=== PATIENT | female | born 1985 | race American Indian/Alaskan Native ===

== ENCOUNTER 2017-06-06 22:43 | Emergency (ER) | payer SELFPAY ==
[2017-06-06] MEDS ORDERED: TYLENOL PO ONE (22:54)
[2017-06-06] MEDS ORDERED: TYLENOL ONE (22:57)
[2017-06-07 00:31] VITALS: BP 137/97
[2017-06-07] MEDS ORDERED: TYLENOL #3 ONE (02:01)
[2017-06-07] MEDS ORDERED: TRIMOX ONE (02:01)
[2017-06-07] MEDS ORDERED: TRIMOX PO ONE (02:03)
[2017-06-07] MEDS ORDERED: TYLENOL #3 PO ONE (02:03)
--- NOTE | 2017-06-07 03:01 | Emergency Department Report ---
HPI - General Chief Complaint: Dental/Oral Time Seen by Provider: 06/07/17 02:21 - HPI HPI: The patient is a 32-year-old male who presents to ED complaining of 8/10 pain in the left side of his mouth x 2 days . Patient states that the pain started 2 days ago and has increased in severity today. The pain is exacerbated by eating and opening of the mouth and eating Patient states the pain is alleviated initially with pain medication but comes back. Patient states that it radiates towards ear. Patient describes a as a throbbing, pressure-like sensation. Patient states otherwise well and has no other complaints. Patient has had no fevers and no chills. No chest pain, no shortness of breath. No abdominal pain. No shortness of breath or recent trauma to the face. ED Past Medical Hx - Past Medical History Previous Medical History?: No - Surgical History Past Surgical History?: Yes Additional Surgical History: fibroid removal 2014 - Social History Smoking Status: Never Smoker Substance Use Type: None - Medications Home Medications: Home Medications Medication Instructions Recorded Confirmed Last Taken Type Acetaminophen/Codeine [Tylenol 1 tab PO Q6H PRN #12 tab 06/07/17 Unknown Rx /Codeine # 3 tab] Amoxicillin [Amoxicillin TAB] 875 mg PO TID #21 tablet 06/07/17 Unknown Rx Ibuprofen [Motrin] 800 mg PO Q8HR PRN #30 tablet 06/07/17 Unknown Rx ED Review of Systems ROS: Stated complaint: COLD SX Other details as noted in HPI Constitutional: denies: chills, fever Eyes: denies: eye pain, eye discharge, vision change ENT: denies: ear pain, throat pain Respiratory: denies: cough, shortness of breath, wheezing Cardiovascular: denies: chest pain, palpitations Endocrine: no symptoms reported Gastrointestinal: denies: abdominal pain, nausea, diarrhea Genitourinary: denies: urgency, dysuria, discharge Musculoskeletal: denies: back pain, joint swelling, arthralgia Skin: denies: rash, lesions Neurological: denies: headache, weakness, paresthesias Psychiatric: denies: anxiety, depression Hematological/Lymphatic: denies: easy bleeding, easy bruising Physical Exam - Physical Exam Vital Signs: Vital Signs 06/06/17 06/06/17 06/07/17 22:49 22:55 00:30 Temperature 99.2 F 98.7 F Pulse Rate 79 76 Respiratory 18 18 18 Rate Blood Pressure 142/100 Blood Pressure 137/97 [Right] O2 Sat by Pulse 100 99 Oximetry 06/07/17 02:08 Temperature Pulse Rate Respiratory 18 Rate Blood Pressure Blood Pressure [Right] O2 Sat by Pulse Oximetry Physical Exam: GENERAL: Alert and oriented x3, no apparent distress, Normal Gait, atraumatic. HEAD: Head is normocephalic and a-traumatic. EYES: Extra ocular muscles are intact. Pupils are equal, round, and reactive to light and accommodation. EARS: symetrical, atraumatic, non tender, ear canal clear and moderate cerumen, tympanic membrance non inflamed. gross auditory nml bilaterally. . MOUTH:Mouth is well hydrated and without lesions. Tonsils nonerythematous or swollen, Uvula midline, Tongue not elevated. Mucous membranes are moist. Posterior pharynx clear, no exudate or lesions. Patent airways. Tenderness to palpation of tooth #20, no bleeding, no gingival enlargement #20 partially missing. NECK: Supple. Non edematous No lymphadenopathy or thyromegaly. LUNGS: Symetrical with respiration, No wheezing, no rales or crackles, CTAB. HEART: S1, S2 present, regular rate and rhythm without murmur, no rubs, no gallops. Non tender to palpation BACK: Full range of motion, no spinal tenderness, nontender to palpation. SKIN: Warm and dry, No lesions, No ulceration or induration present. ED Course Vital Signs 06/06/17 06/06/17 06/07/17 22:49 22:55 00:30 Temperature 99.2 F 98.7 F Pulse Rate 79 76 Respiratory 18 18 18 Rate Blood Pressure 142/100 Blood Pressure 137/97 [Right] O2 Sat by Pulse 100 99 Oximetry 06/07/17 02:08 Temperature Pulse Rate Respiratory 18 Rate Blood Pressure Blood Pressure [Right] O2 Sat by Pulse Oximetry ED Medical Decision Making - Medical Decision Making 32-year-old female who presents with left-sided Facial pain secondary to odontogenic caries ED course: Patient received 1000 mg of amoxicillin, 1 tablet of Tylenol No. 3. Odontogenic infection versus ear infection. Based upon history and physical examination, pain is a result of an infection of tooth number 20 and that the pain Pt feels on the right side of his face and towards the ear is referred pain from this infectious process. Pt has no evidence of acute impending airway compromise. At this point, patient will be discharged home on some antibiotics and pain trial, she will do well with an outpatient course of antibiotics. Follow up with the Dental Clinic as referred Vital signs are normal patient is in no acute distress. Pt had an effect uneventful ED stay Critical care attestation.: If time is entered above; I have spent that time in minutes in the direct care of this critically ill patient, excluding procedure time. ED Disposition Clinical Impression: Dental caries, Pain, dental, Tooth infection Disposition: TO HOME OR SELFCARE Is pt being admited?: No Does the pt Need Aspirin: No Condition: Stable Instructions: Toothache (ED), Dental Caries (ED) Additional Instructions: Follow-up with dentist in 3-5 days If symptoms worsen or new symptoms arise return to ED immediately Prescriptions: Acetaminophen/Codeine [Tylenol /Codeine # 3 tab] 1 tab PO Q6H PRN #12 tab PRN Reason: Pain Amoxicillin [Amoxicillin TAB] 875 mg PO TID #21 tablet Ibuprofen [Motrin] 800 mg PO Q8HR PRN #30 tablet PRN Reason: Pain Referrals: PRIMARY CARE,MD [Primary Care Provider] - 3-[address] [facility] [Outside] - 3-5 Days [facility] [Outside] - 3-[address] [facility] [Outside] - 3-5 Days [facility] [Outside] - 3-5 Days Forms: Accompanied Note, Work/School Release Form(ED) Time of Disposition: 03:04
== END 2017-06-07 03:13 | disposition home or self-care (01) ==
LOC: ED 22:43
DX: K04.7 Periapical abscess without sinus (principal)
CPT/HCPCS: 99282

== ENCOUNTER 2019-06-15 08:36 | Emergency (ER) | payer SELFPAY ==
[2019-06-15 09:01] LABS: Hematocrit 42.8 % (30.3-42.9); Hemoglobin 14.2 gm/dl (10.1-14.3); Mean Corpuscular HGB Conc 33 % (30-34); Mean Corpuscular Volume 84 fl (79-97); Platelet Count 242 K/mm3 (140-440); Red Blood Count 5.09 M/mm3 (3.65-5.03); Red Cell Distribution Width 13.5 % (13.2-15.2)
[2019-06-15 09:24] LABS: Alanine Aminotransferase 10 units/L (7-56); Albumin 4.5 g/dL (3.9-5); BUN/Creatinine Ratio 10; Blood Urea Nitrogen 10 mg/dL (7-17); Calcium 9.8 mg/dL (8.4-10.2); Hemolysis Index 1
[2019-06-15] MEDS ORDERED: KETOROLAC 30 MG/1 ML INJ IV ONE (09:55)
[2019-06-15] MEDS ORDERED: SODIUM CHLORIDE 0.9% 1000 ML 1,000 ML IV ONE ×2 (09:55→11:54)
[2019-06-15] MEDS ORDERED: ONDANSETRON 4 MG/2 ML INJ IV ONE (09:55)
[2019-06-15] MEDS ORDERED: FAMOTIDINE 20 MG/2 ML INJ IV ONE (09:55)
[2019-06-15 10:29] LABS: Bilirubin,Urine Negative (Negative); Blood,Urine Trace (Negative); Color,Urine Yellow (Yellow)
[2019-06-15 10:30] LABS: Urobilinogen,Urine 0.2 mg/dL (<2.0)
[2019-06-15 10:40] LABS: Anisocytosis 1+; Band Neutrophils # (Manual) 1.6 K/mm3; Basophils % (Manual) 0 % (0.0-1.8); Eosinophils % (Manual) 0 % (0.0-4.3); Platelet Estimate Consistent w Auto; Total Cells Counted 100
--- NOTE | 2019-06-15 11:06 | Emergency Department Report ---
ED N/V/D HPI - General Chief complaint: Abdominal Pain Stated complaint: ABD PAIN Time Seen by Provider: 06/15/19 09:37 Source: patient Mode of arrival: Ambulatory Limitations: No Limitations - History of Present Illness Initial comments: This is a 34-year-old female who presents to the ED complaining of nausea vomiting diarrhea that began 2 days ago. She states she is back to wrap her wrist 2 days ago shortly after the symptoms started. His patient denies any injuries trauma to the abdomen. She says last menstrual period as 06/13/2019 and currently on her cycle. MD complaint: nausea, vomiting, diarrhea, abdominal pain Description of Vomiting: food contents Description of Diarrhea: water Associated Abdominal Pain: Yes (generalized) Location: diffuse Radiation: none Severity: moderate Pain Scale: 4 Quality: cramping, aching Consistency: intermittent Improves with: none Context: possible food poisoning Associated Symptoms: denies other symptoms. denies: chest pain, cough, malaise - Related Data Previous Rx's Medication Instructions Recorded Last Taken Type Acetaminophen/Codeine [Tylenol 1 tab PO Q6H PRN #12 tab 06/07/17 Unknown Rx /Codeine # 3 tab] Amoxicillin [Amoxicillin TAB] 875 mg PO TID #21 tablet 06/07/17 Unknown Rx Ibuprofen [Motrin] 800 mg PO Q8HR PRN #30 tablet 06/07/17 Unknown Rx Dicyclomine [Bentyl] 20 mg PO BID #20 tablet 06/15/19 Unknown Rx Famotidine [Pepcid] 20 mg PO BID #20 tablet 06/15/19 Unknown Rx Ondansetron [Zofran ODT TAB] 8 mg PO Q12HR #20 tab.rapdis 06/15/19 Unknown Rx Allergies Allergy/AdvReac Type Severity Reaction Status Date / Time No Known Allergies Allergy Verified 06/06/17 23:47 ED Review of Systems ROS: Stated complaint: ABD PAIN Other details as noted in HPI Comment: All other systems reviewed and negative ED Past Medical Hx - Past Medical History Previous Medical History?: No - Surgical History Past Surgical History?: Yes Additional Surgical History: fibroid removal 2014 - Social History Smoking Status: Never Smoker Substance Use Type: None - Medications Home Medications: Home Medications Medication Instructions Recorded Confirmed Last Taken Type Acetaminophen/Codeine [Tylenol 1 tab PO Q6H PRN #12 tab 06/07/17 Unknown Rx /Codeine # 3 tab] Amoxicillin [Amoxicillin TAB] 875 mg PO TID #21 tablet 06/07/17 Unknown Rx Ibuprofen [Motrin] 800 mg PO Q8HR PRN #30 tablet 06/07/17 Unknown Rx Dicyclomine [Bentyl] 20 mg PO BID #20 tablet 06/15/19 Unknown Rx Famotidine [Pepcid] 20 mg PO BID #20 tablet 06/15/19 Unknown Rx Ondansetron [Zofran ODT TAB] 8 mg PO Q12HR #20 tab.rapdis 06/15/19 Unknown Rx ED Physical Exam - General Limitations: No Limitations General appearance: alert, in no apparent distress - Head Head exam: Present: atraumatic, normocephalic - Eye Eye exam: Present: normal appearance - ENT ENT exam: Present: mucous membranes moist - Neck Neck exam: Present: normal inspection - Respiratory Respiratory exam: Present: normal lung sounds bilaterally. Absent: respiratory distress - Cardiovascular Cardiovascular Exam: Present: regular rate, normal rhythm. Absent: systolic murmur, diastolic murmur, rubs, gallop - GI/Abdominal GI/Abdominal exam: Present: soft, normal bowel sounds. Absent: distended, tenderness, guarding, mass - Extremities Exam Extremities exam: Present: normal inspection - Back Exam Back exam: Present: normal inspection - Neurological Exam Neurological exam: Present: alert, oriented X3 - Psychiatric Psychiatric exam: Present: normal affect, normal mood - Skin Skin exam: Present: warm, dry, intact, normal color. Absent: rash ED Course Vital Signs 06/15/19 06/15/19 06/15/19 08:43 11:44 12:04 Temperature 98.1 F Pulse Rate 105 H 89 Respiratory 18 18 17 Rate Blood Pressure 127/81 108/64 [Right] O2 Sat by Pulse 99 100 Oximetry ED Medical Decision Making - Lab Data Result diagrams: 06/15/19 08:46 06/15/19 08:47 Laboratory Last Values WBC 16.0 K/mm3 (4.5-11.0) H 06/15/19 08:46 RBC 5.09 M/mm3 (3.65-5.03) H 06/15/19 08:46 Hgb 14.2 gm/dl (10.1-14.3) 06/15/19 08:46 Hct 42.8 % (30.3-42.9) 06/15/19 08:46 MCV 84 fl (79-97) 06/15/19 08:46 MCH 28 pg (28-32) 06/15/19 08:46 MCHC 33 % (30-34) 06/15/19 08:46 RDW 13.5 % (13.2-15.2) 06/15/19 08:46 Plt Count 242 K/mm3 (140-440) 06/15/19 08:46 Add Manual Diff Complete 06/15/19 08:46 Total Counted 100 06/15/19 08:46 Seg Neutrophils % Home Health Clinical Supervisor 06/15/19 08:46 Seg Neuts % (Manual) 81.0 % (40.0-70.0) H 06/15/19 08:46 Band Neutrophils % 10.0 % 06/15/19 08:46 Lymphocytes % (Manual) 5.0 % (13.4-35.0) L 06/15/19 08:46 Reactive Lymphs % (Man) 0 % 06/15/19 08:46 Monocytes % (Manual) 1.0 % (0.0-7.3) 06/15/19 08:46 Eosinophils % (Manual) 0 % (0.0-4.3) 06/15/19 08:46 Basophils % (Manual) 0 % (0.0-1.8) 06/15/19 08:46 Metamyelocytes % 3.0 % 06/15/19 08:46 Myelocytes % 0 % 06/15/19 08:46 Promyelocytes % 0 % 06/15/19 08:46 Blast Cells % 0 % 06/15/19 08:46 Nucleated RBC % Not Reportable 06/15/19 08:46 Seg Neutrophils # Man 13.0 K/mm3 (1.8-7.7) H 06/15/19 08:46 Band Neutrophils # 1.6 K/mm3 06/15/19 08:46 Lymphocytes # (Manual) 0.8 K/mm3 (1.2-5.4) L 06/15/19 08:46 Abs React Lymphs (Man) 0.0 K/mm3 06/15/19 08:46 Monocytes # (Manual) 0.2 K/mm3 (0.0-0.8) 06/15/19 08:46 Eosinophils # (Manual) 0.0 K/mm3 (0.0-0.4) 06/15/19 08:46 Basophils # (Manual) 0.0 K/mm3 (0.0-0.1) 06/15/19 08:46 Metamyelocytes # 0.5 K/mm3 06/15/19 08:46 Myelocytes # 0.0 K/mm3 06/15/19 08:46 Promyelocytes # 0.0 K/mm3 06/15/19 08:46 Blast Cells # 0.0 K/mm3 06/15/19 08:46 WBC Morphology Not Reportable 06/15/19 08:46 Hypersegmented Neuts Not Reportable 06/15/19 08:46 Hyposegmented Neuts Not Reportable 06/15/19 08:46 Hypogranular Neuts Not Reportable 06/15/19 08:46 Smudge Cells Not Reportable 06/15/19 08:46 Toxic Granulation Not Reportable 06/15/19 08:46 Toxic Vacuolation Not Reportable 06/15/19 08:46 Dohle Bodies Not Reportable 06/15/19 08:46 Pelger-Huet Anomaly Not Reportable 06/15/19 08:46 Nkechi Rods Not Reportable 06/15/19 08:46 Platelet Estimate Consistent w auto 06/15/19 08:46 Clumped Platelets Not Reportable 06/15/19 08:46 Plt Clumps, EDTA Not Reportable 06/15/19 08:46 Large Platelets Not Reportable 06/15/19 08:46 Giant Platelets Not Reportable 06/15/19 08:46 Platelet Satelliting Not Reportable 06/15/19 08:46 Plt Morphology Comment Not Reportable 06/15/19 08:46 RBC Morphology Not Reportable 06/15/19 08:46 Dimorphic RBCs Not Reportable 06/15/19 08:46 Polychromasia Not Reportable 06/15/19 08:46 Hypochromasia Not Reportable 06/15/19 08:46 Poikilocytosis Not Reportable 06/15/19 08:46 Anisocytosis 1+ 06/15/19 08:46 Microcytosis Not Reportable 06/15/19 08:46 Macrocytosis Not Reportable 06/15/19 08:46 Spherocytes Not Reportable 06/15/19 08:46 Pappenheimer Bodies Not Reportable 06/15/19 08:46 Sickle Cells Not Reportable 06/15/19 08:46 Target Cells Not Reportable 06/15/19 08:46 Tear Drop Cells Not Reportable 06/15/19 08:46 Ovalocytes Not Reportable 06/15/19 08:46 Helmet Cells Not Reportable 06/15/19 08:46 [place]-Sunflower Bodies Not Reportable 06/15/19 08:46 [place] Rings Not Reportable 06/15/19 08:46 Paco Cells Not Reportable 06/15/19 08:46 Bite Cells Not Reportable 06/15/19 08:46 Crenated Cell Not Reportable 06/15/19 08:46 Elliptocytes Not Reportable 06/15/19 08:46 Acanthocytes (Spur) Not Reportable 06/15/19 08:46 Rouleaux Not Reportable 06/15/19 08:46 Hemoglobin C Crystals Not Reportable 06/15/19 08:46 Schistocytes Not Reportable 06/15/19 08:46 Malaria parasites Not Reportable 06/15/19 08:46 Kane Bodies Not Reportable 06/15/19 08:46 Hem Pathologist Commnt No 06/15/19 08:46 Sodium 136 mmol/L (137-145) L 06/15/19 08:47 Potassium 3.5 mmol/L (3.6-5.0) L 06/15/19 08:47 Chloride 96.6 mmol/L (98-107) L 06/15/19 08:47 Carbon Dioxide 21 mmol/L (22-30) L 06/15/19 08:47 Anion Gap 22 mmol/L 06/15/19 08:47 BUN 10 mg/dL (7-17) 06/15/19 08:47 Creatinine 1.0 mg/dL (0.7-1.2) 06/15/19 08:47 Estimated GFR > 60 ml/min 06/15/19 08:47 BUN/Creatinine Ratio 10 % 06/15/19 08:47 Glucose 125 mg/dL (65-100) H 06/15/19 08:47 Calcium 9.8 mg/dL (8.4-10.2) 06/15/19 08:47 Total Bilirubin 0.80 mg/dL (0.1-1.2) 06/15/19 08:47 AST 19 units/L (5-40) 06/15/19 08:47 ALT 10 units/L (7-56) 06/15/19 08:47 Alkaline Phosphatase 72 units/L (35-129) 06/15/19 08:47 Total Protein 8.6 g/dL (6.3-8.2) H 06/15/19 08:47 Albumin 4.5 g/dL (3.9-5) 06/15/19 08:47 Albumin/Globulin Ratio 1.1 % 06/15/19 08:47 HCG, Qual Negative (Negative) 06/15/19 09:07 Urine Color Yellow (Yellow) 06/15/19 10:09 Urine Turbidity Hazy (Clear) 06/15/19 10:09 Urine pH 6.0 (5.0-7.0) 06/15/19 10:09 Ur Specific [place] 1.030 (1.003-1.030) 06/15/19 10:09 Urine Protein 30 mg/dl mg/dL (Negative) 06/15/19 10:09 Urine Glucose (UA) Negative mg/dL (Negative) 06/15/19 10:09 Urine Ketones Negative mg/dL (Negative) 06/15/19 10:09 Urine Blood Trace (Negative) 06/15/19 10:09 Urine Nitrite Negative (Negative) 06/15/19 10:09 Urine Bilirubin Negative (Negative) 06/15/19 10:09 Urine Urobilinogen 0.2 mg/dL (<2.0) 06/15/19 10:09 Ur Leukocyte Esterase Trace (Negative) 06/15/19 10:09 Urine WBC (Auto) 4.0 /HPF (0.0-6.0) 06/15/19 10:09 Urine RBC (Auto) 2.0 /HPF (0.0-6.0) 06/15/19 10:09 U Epithel Cells (Auto) 3.0 /HPF (0-13.0) 06/15/19 10:09 - Radiology Data Radiology results: report reviewed, image reviewed CT OF THE ABDOMEN AND PELVIS WITH INTRAVENOUS CONTRAST INDICATION / CLINICAL INFORMATION: Right-sided abdominal pain with nausea and vomiting for 48 hours.. TECHNIQUE: The patient received 100 cc Omnipaque [address] scans at this location are performed using CT dose reduction for ALARA by means of automated exposure control. COMPARISON: None available. FINDINGS: ABDOMEN: There is moderate increased fluid throughout the colon and in the distal small bowel without significant bowel wall thickening. I see no evidence of bowel obstruction or free air. There is mild generalized increased density of the peritoneal fat anteriorly which is a nonspecific finding and is likely reactive. There is a small hiatal hernia. The liver, spleen, gallbladder, bile ducts, pancreas, adrenal glands and kidneys are normal. No adenopathy is seen. The lung bases are clear. PELVIS: The distal ureters and urinary bladder are normal. The uterus and adnexal regions are unremarkable. No abnormal mass or fluid collection is seen. A normal appendix is present and there is no evidence of diverticulitis. There is a small fat-containing periumbilical hernia without complication. No acute osseous abnormality is seen. IMPRESSION: Findings characteristic of a low-grade enterocolitis. No CT evidence of acute appendicitis. Signer Name: Marc Urbina MD Signed: 06/15/2019 12:35 PM Workstation Name: [id number] Transcribed By: RT Dictated By: Marc Urbina MD Electronically Authenticated By: Marc Urbina MD Signed Date/Time: 06/15/19 1235 - Medical Decision Making 34 year of presents with acute gastroenteritis. Patient got medication while in the ED. Labs within normal limits. There was leukocytosis. Most likely due to continued active vomiting and dehydration Patient reports feeling better prior to discharge. CT scan of the abdomen shows no acute disease. I explained all labs with the patient. She received fluids in the ED Vital signs are normal patient is in no acute distress. Also patient will follow-up with the primary care physician. Discussed the patient is symptoms worsen to return to ED. Critical care attestation.: If time is entered above; I have spent that time in minutes in the direct care of this critically ill patient, excluding procedure time. ED Disposition Clinical Impression: Acute gastroenteritis Disposition: DC-01 TO HOME OR SELFCARE Is pt being admited?: No Does the pt Need Aspirin: No Condition: Stable Instructions: Gastroenteritis (ED), Food Poisoning (ED), Abdominal Pain (ED) Additional Instructions: Make sure to follow up with the primary care physician as discussed. Take all your medications as you've been prescribed. If you have any worsening symptoms or develop new symptoms please return to ED immediately. Prescriptions: Dicyclomine [Bentyl] 20 mg PO BID #20 tablet Famotidine [Pepcid] 20 mg PO BID #20 tablet Ondansetron [Zofran ODT TAB] 8 mg PO Q12HR #20 tab.radha Referrals: PRIMARY CARE,MD [Primary Care Provider] - 3-5 Days [facility] [Provider Group] - 3-5 Days [facility] [Outside] - 3-5 Days [facility] [Outside] - 3-5 Days Forms: Accompanied Note, Work/School Release Form(ED) Time of Disposition: 13:18
[2019-06-15] MEDS ORDERED: MORPHINE 2 MG/1 ML INJ IV ONE (11:54)
[2019-06-15 12:04] VITALS: BP 108/64
--- NOTE | 2019-06-15 12:39 | Cat Scan Report ---
CT OF THE ABDOMEN AND PELVIS WITH INTRAVENOUS CONTRAST INDICATION / CLINICAL INFORMATION: Right-sided abdominal pain with nausea and vomiting for 48 hours.. TECHNIQUE: The patient received 100 cc Omnipaque [address] scans at this location are performed using CT dose reduction for ALARA by means of automated exposure control. COMPARISON: None available. FINDINGS: ABDOMEN: There is moderate increased fluid throughout the colon and in the distal small bowel without significant bowel wall thickening. I see no evidence of bowel obstruction or free air. There is mild generalized increased density of the peritoneal fat anteriorly which is a nonspecific finding and is likely reactive. There is a small hiatal hernia. The liver, spleen, gallbladder, bile ducts, pancreas, adrenal glands and kidneys are normal. No adeno ade is seen. The lung bases are clear. PELVIS: The distal ureters and urinary bladder are normal. The uterus and adnexal regions are unremar kable. No abnormal mass or fluid collection is seen. A normal appendix is present and there is no nathen dence of diverticulitis. There is a small fat-containing periumbilical hernia without complication. N o acute osseous abnormality is seen. IMPRESSION: Findings characteristic of a low-grade enterocolitis. No CT evidence of acute appendiciti s. Signer Name: Marc Urbina MD Signed: 06/15/2019 12:35 PM Workstation Name: [email or web address]
== END 2019-06-15 13:33 | disposition home or self-care (01) ==
LOC: ED 08:36
DX: K52.9 Noninfective gastroenteritis and colitis, unspecified (principal); Z98.890 Other specified postprocedural states; Z79.2 Long term (current) use of antibiotics; Z79.1 Long term (current) use of non-steroidal anti-inflammatories (NSAID); Z79.899 Other long term (current) drug therapy
CPT/HCPCS: 36415; 74177; 80053; 81001; 84703; 85007; 85025; 96361; 96374; 96375; 99284; J1885; J2270; J2405; J7030; Q9967

== ENCOUNTER 2020-05-23 01:42 | Emergency (ER) | payer OTHER ==
[2020-05-23 02:26] LABS: Basophils # (Auto) 0.1 K/mm3 (0.0-0.1); Basophils % (Auto) 1.1 % (0.0-1.8); Eosinophils % (Auto) 0.3 % (0.0-4.3); Hematocrit 42.2 % (30.3-42.9); Hemoglobin 14.3 gm/dl (10.1-14.3); Lymphocytes % (Auto) 29.3 % (13.4-35.0); Mean Corpuscular HGB Conc 34 % (30-34); Mean Corpuscular Volume 86 fl (79-97); Monocytes # (Auto) 0.6 K/mm3 (0.0-0.8); Monocytes % (Auto) 9.6 % (0.0-7.3); Platelet Count 259 K/mm3 (140-440); Red Blood Count 4.92 M/mm3 (3.65-5.03); Red Cell Distribution Width 13.3 % (13.2-15.2)
[2020-05-23 03:11] LABS: Bilirubin,Urine NEG (Negative); Blood,Urine LG (Negative); Color,Urine Yellow (Yellow); Mucus,Urine FEW /HPF; Urobilinogen,Urine < 2.0 mg/dL (<2.0)
--- NOTE | 2020-05-23 03:18 | Ultrasound Report ---
ULTRASOUND OBSTETRIC INDICATION / CLINICAL INFORMATION: Vaginal bleeding reports 6 weeks . Clinical Gestational Age (GA) in weeks, days: 6, 3 TECHNIQUE: Transabdominal and Transvaginal. COMPARISON: None available. FINDINGS: GESTATIONAL SAC: Well-defined oval shape and intrauterine in location. YOLK SAC: No significant abnormality. EMBRYO/FETUS: No significant abnormality. - [place]-Rump Length = 0.8 cm = 6, 6 weeks, days - Heart Rate, beats per minute (if present) = 131 ADNEXA: No significant abnormality. FREE FLUID: None. ADDITIONAL FINDINGS: Small uterine fibroids measuring up to 2.2 cm. IMPRESSION: 1. Single, living intrauterine with estimated sonographic age of 6, 6 weeks, days. Signer Name: Harmeet Gamboa MD Signed: 05/23/2020 3:14 AM Workstation Name: [id number]
--- NOTE | 2020-05-23 03:18 | Ultrasound Report ---
ULTRASOUND OBSTETRIC INDICATION / CLINICAL INFORMATION: Vaginal bleeding reports 6 weeks . Clinical Gestational Age (GA) in weeks, days: 6, 3 TECHNIQUE: Transabdominal and Transvaginal. COMPARISON: None available. FINDINGS: GESTATIONAL SAC: Well-defined oval shape and intrauterine in location. YOLK SAC: No significant abnormality. EMBRYO/FETUS: No significant abnormality. - [place]-Rump Length = 0.8 cm = 6, 6 weeks, days - Heart Rate, beats per minute (if present) = 131 ADNEXA: No significant abnormality. FREE FLUID: None. ADDITIONAL FINDINGS: Small uterine fibroids measuring up to 2.2 cm. IMPRESSION: 1. Single, living intrauterine with estimated sonographic age of 6, 6 weeks, days. Signer Name: Harmeet Gamboa MD Signed: 05/23/2020 3:14 AM Workstation Name: [id number]
--- NOTE | 2020-05-23 06:53 | Emergency Department Report ---
ED Female HPI - General Chief complaint: Vaginal Bleeding Stated complaint: VAGINAL BLEEDING Time Seen by Provider: 05/23/20 06:08 Source: patient, EMS ( EMS documentation not available at time of chart dictation ), RN notes reviewed Mode of arrival: Ambulatory Limitations: No Limitations - History of Present Illness Initial comments: The patient was evaluated in the emergency department for symptoms described in the history of present illness. He/she was evaluated in the context of the global COVID-19 pandemic, which necessitated consideration that the patient might be at risk for infection with the virus that causes COVID-19. Institutional protocols and algorithms that pertain to the evaluation of patients at risk for COVID-19 are in a state of rapid change based on information released by regulatory bodies including the CDC and federal and state organizations. These policies and algorithms were followed during the patient's care in the emergency department. Please note that these policies, procedures and recommendations changed on a rapid basis. Patient is a pleasant 35-year-old female who is not known to myself previously, 3, para 0, reports "2 miscarriages at 5 months, because my water broke both times." She is approximately 6-1/2 weeks , without chronic medical conditions, and reports no care, and reports that she does not have an [facility] doctor. She presents to the ER today with a complaint of painless vaginal bleeding, that started a few hours ago. She denies all additional complaints. She denies physical pain. She denies urinary symptoms. No recent trauma, heavy lifting, or vigorous sexual activity. Patient states "I think I am having a miscarriage." Complaint: vaginal bleeding -: Gradual, hour(s) Consistency: intermittent Improves with: none Worsens with: none Are you Now?: Yes Associated Symptoms: denies other symptoms, vaginal bleeding - Related Data Previous Rx's Medication Instructions Recorded Last Taken Type Famotidine [Pepcid] 20 mg PO BID #20 tablet 06/15/19 Unknown Rx Doxylamine Succinate/Vit B6 1 each PO QHS PRN #30 tablet. 05/23/20 Unknown Rx [Kacie Cannon 10-10 mg Tablet] Vit-Fe Fumar-FA [ 1 tab PO QDAY #30 tablet 05/23/20 Unknown Rx Vitamin] Allergies Allergy/AdvReac Type Severity Reaction Status Date / Time No Known Allergies Allergy Verified 06/06/17 23:47 ED Review of Systems ROS: Stated complaint: VAGINAL BLEEDING Other details as noted in HPI Comment: All other systems reviewed and negative Genitourinary: abnormal menses. denies: urgency, dysuria, frequency, hematuria, discharge ED Past Medical Hx - Past Medical History Previous Medical History?: No - Surgical History Past Surgical History?: Yes Additional Surgical History: fibroid removal 2014 - Social History Smoking Status: Never Smoker - Medications Home Medications: Home Medications Medication Instructions Recorded Confirmed Last Taken Type Famotidine [Pepcid] 20 mg PO BID #20 tablet 06/15/19 Unknown Rx Doxylamine Succinate/Vit B6 1 each PO QHS PRN #30 tablet. 05/23/20 Unknown Rx [Diclegis Dr 10-10 mg Tablet] Vit-Fe Fumar-FA [ 1 tab PO QDAY #30 tablet 05/23/20 Unknown Rx Vitamin] ED Physical Exam - General Limitations: No Limitations General appearance: alert, in no apparent distress - Head Head exam: Present: atraumatic, normocephalic - Eye Eye exam: Present: normal appearance, EOMI. Absent: nystagmus - ENT ENT exam: Present: normal exam, normal orophraynx, mucous membranes moist, normal external ear exam - Neck Neck exam: Present: normal inspection, full ROM. Absent: tenderness, meningismus - Respiratory Respiratory exam: Present: normal lung sounds bilaterally. Absent: respiratory distress, wheezes, rales, rhonchi, stridor, decreased breath sounds - Cardiovascular Cardiovascular Exam: Present: regular rate, normal rhythm, normal heart sounds. Absent: bradycardia, tachycardia, irregular rhythm, systolic murmur, diastolic murmur, rubs, gallop - GI/Abdominal GI/Abdominal exam: Present: soft, normal bowel sounds. Absent: distended, tenderness, guarding, rebound, rigid, pulsatile mass - External exam: Present: normal external exam, bleeding, other (Chaperoned by nurse Marce Tolentino). Absent: erythema, swelling, lesions, lacerations Speculum exam: Present: vaginal bleeding. Absent: vaginal discharge - Extremities Exam Extremities exam: Present: normal inspection, full ROM, other (2+ pulses noted in the bilateral upper and lower extremities. There is no palpable cord. negative Homans sign. Muscular compartments are soft. The pelvis is stable.). Absent: pedal edema, calf tenderness - Back Exam Back exam: Present: normal inspection, full ROM. Absent: tenderness, CVA ten derness (R), CVA tenderness (L), paraspinal tenderness, vertebral tenderness - Neurological Exam Neurological exam: Present: alert, oriented X3, normal gait, other (No facial droop. Tongue midline. Extraocular movements intact bilaterally. Facial sensation intact to light touch in V1, V2, V3 distribution bilaterally. 5 and a 5 strength in 4 extremities. Sensation intact to light touch in 4 extremities.). Absent: motor sensory deficit - Psychiatric Psychiatric exam: Present: anxious - Skin Skin exam: Present: warm, dry, intact, normal color. Absent: rash ED Course Vital Signs 05/23/20 05/23/20 05/23/20 01:53 04:42 04:43 Temperature 98.6 F 98.3 F Pulse Rate 85 77 Respiratory 16 18 Rate Blood Pressure 115/85 Blood Pressure 125/82 [Right] O2 Sat by Pulse 94 100 Oximetry 05/23/20 05/23/20 05/23/20 04:45 05:01 05:15 Temperature Pulse Rate Respiratory Rate Blood Pressure 125/82 129/74 109/61 Blood Pressure [Right] O2 Sat by Pulse 100 100 100 Oximetry 05/23/20 05/23/20 05/23/20 05:31 05:45 06:01 Temperature Pulse Rate Respiratory Rate Blood Pressure 107/70 132/66 106/70 Blood Pressure [Right] O2 Sat by Pulse 100 100 100 Oximetry ED Medical Decision Making - Lab Data Result diagrams: 05/23/20 02:07 Vital Signs 05/23/20 05/23/20 05/23/20 01:53 04:42 04:43 Temperature 98.6 F 98.3 F Pulse Rate 85 77 Respiratory 16 18 Rate Blood Pressure 115/85 Blood Pressure 125/82 [Right] O2 Sat by Pulse 94 100 Oximetry 05/23/20 05/23/20 05/23/20 04:45 05:01 05:15 Temperature Pulse Rate Respiratory Rate Blood Pressure 125/82 129/74 109/61 Blood Pressure [Right] O2 Sat by Pulse 100 100 100 Oximetry 05/23/20 05/23/20 05/23/20 05:31 05:45 06:01 Temperature Pulse Rate Respiratory Rate Blood Pressure 107/70 132/66 106/70 Blood Pressure [Right] O2 Sat by Pulse 100 100 100 Oximetry Lab Results 05/23/20 05/23/20 05/23/20 Range/Units 02:07 02:07 02:07 WBC 6.7 (4.5-11.0) K/mm3 RBC 4.92 (3.65-5.03) M/mm3 Hgb 14.3 (10.1-14.3) gm/dl Hct 42.2 (30.3-42.9) % MCV 86 (79-97) fl MCH 29 (28-32) pg MCHC 34 (30-34) % RDW 13.3 (13.2-15.2) % Plt Count 259 (140-440) K/mm3 Lymph % (Auto) 29.3 (13.4-35.0) % Cloud % (Auto) 9.6 H (0.0-7.3) % Eos % (Auto) 0.3 (0.0-4.3) % Baso % (Auto) 1.1 (0.0-1.8) % Lymph # (Auto) 2.0 (1.2-5.4) K/mm3 Cloud # (Auto) 0.6 (0.0-0.8) K/mm3 Eos # (Auto) 0.0 (0.0-0.4) K/mm3 Baso # (Auto) 0.1 (0.0-0.1) K/mm3 Seg Neutrophils % 59.7 (40.0-70.0) % Seg Neutrophils # 4.0 (1.8-7.7) K/mm3 HCG, Quant 30508 H (0-4) mIU/mL Urine Color (Yellow) Urine Turbidity (Clear) Urine pH (5.0-7.0) Ur Specific [place] [address] (1.003-1.030) Urine Protein (Negative) mg/dL Urine Glucose (UA) (Negative) mg/dL Urine Ketones (Negative) mg/dL Urine Blood (Negative) Urine Nitrite (Negative) Urine Bilirubin (Negative) Urine Urobilinogen (<2.0) mg/dL Ur Leukocyte Esterase (Negative) Urine WBC (Auto) (0.0-6.0) /HPF Urine RBC (Auto) (0.0-6.0) /HPF U Epithel Cells (Auto) (0-13.0) /HPF Urine Mucus /HPF Blood Type O POSITIVE 05/23/20 Range/Units Unknown WBC (4.5-11.0) K/mm3 RBC (3.65-5.03) M/mm3 Hgb (10.1-14.3) gm/dl Hct (30.3-42.9) % MCV (79-97) fl MCH (28-32) pg MCHC (30-34) % RDW (13.2-15.2) % Plt Count (140-440) K/mm3 Lymph % (Auto) (13.4-35.0) % Cloud % (Auto) (0.0-7.3) % Eos % (Auto) (0.0-4.3) % Baso % (Auto) (0.0-1.8) % Lymph # (Auto) (1.2-5.4) K/mm3 Cloud # (Auto) (0.0-0.8) K/mm3 Eos # (Auto) (0.0-0.4) K/mm3 Baso # (Auto) (0.0-0.1) K/mm3 Seg Neutrophils % (40.0-70.0) % Seg Neutrophils # (1.8-7.7) K/mm3 HCG, Quant (0-4) mIU/mL Urine Color Yellow (Yellow) Urine Turbidity Clear (Clear) Urine pH 6.0 (5.0-7.0) Ur Specific [address] 1.019 (1.003-1.030) Urine Protein 30 mg/dl (Negative) mg/dL Urine Glucose (UA) Neg (Negative) mg/dL Urine Ketones 80 (Negative) mg/dL Urine Blood Lg (Negative) Urine Nitrite Neg (Negative) Urine Bilirubin Neg (Negative) Urine Urobilinogen < 2.0 (<2.0) mg/dL Ur Leukocyte Esterase Neg (Negative) Urine WBC (Auto) 3.0 (0.0-6.0) /HPF Urine RBC (Auto) 167.0 (0.0-6.0) /HPF U Epithel Cells (Auto) 3.0 (0-13.0) /HPF Urine Mucus Few /HPF Blood Type - Radiology Data Radiology results: report reviewed, image reviewed Print Report Referring Physician: SARAH CONTRERAS Patient Name: BRAN CHAVEZ Date of : 1985 Sex: Female Report Date: 2020-05-23 Report Status: Finalized Findings [facility] [address] [place] [address] Ultrasound Report Signed Patient: BRAN CHAVEZ MR# : [id number] : 1985 Acct:[id number] Age/Sex: 35 / F ADM Date: 05/23/20 Loc: ED Attending Dr: Ordering Physician: LOTUS BELCHER Date of Service: 05/23/20 Procedure(s): US OB transvaginal Accession Number(s): [id number] cc: LOTUS BELCHER ULTRASOUND OBSTETRIC INDICATION / CLINICAL INFOR MATION: Vaginal bleeding reports 6 weeks . Clinical Gestational Age (GA) in weeks, days: 6, 3 TECHNIQUE: Transabdominal and Transvaginal. COMPARISON: None available. FINDINGS: GESTATIONAL SAC: Well-defined oval shape and intrauterine in location. YOLK SAC: No significant abnormality. EMBRYO/FETUS: No significant abnormality. - [place] Length = 0.8 cm = 6, 6 weeks, days - Heart Rate, beats per minute (if present) = 131 ADNEXA: No significant abnormality. FREE FLUID: None. ADDITIONAL FINDINGS: Small uterine fibroids measuring up to 2.2 cm. IMPRESSION: 1. Single, living intrauterine with estimated sonographic age of 6, 6 weeks, days. Signer Name: Harmeet Gamboa MD Signed: 05/23/2020 3:14 AM Workstation Name: [id number] Transcribed By: DT Dictated By: Kana marc MD Electronically Authenticated By: Kana Gamboa MD Signed Date/Time: 05/23/20313 DD/ 1 TD/TT: - Medical Decision Making Differential diagnosis, including but not limited to: Threatened miscarriage Assessment and plan: 35-year-old female, who is afebrile with reassuring vital signs, with a soft benign abdominal examination, no abdominal tenderness, Rh+, urinalysis not suggestive of urinary tract infection, denies irritative and obstructive urinary symptoms, presenting with probable threatened miscarriage. Ultrasound confirms intrauterine . Patient resting comfortably on her stretcher, she is a little bit distressed/anxious, as she reports this is a highly desired . Patient counseled appropriately. Patient instructed to closely follow-up with outpatient [facility] to initiate care. We discussed avoidance of heavy lifting and sexual activity. The patient verbalizes understanding. She reports she is reliable to return to the emergency room if she has a change in her clinical condition. Critical care attestation.: If time is entered above; I have spent that time in minutes in the direct care of this critically ill patient, excluding procedure time. ED Disposition Clinical Impression: Threatened miscarriage in early Disposition: DC-01 TO HOME OR SELFCARE Is pt being admited?: No Does the pt Need Aspirin: No Condition: Stable Instructions: Threatened Miscarriage (ED) Additional Instructions: Please follow-up as soon as possible with an outpatient [facility] doctor to initiate care. Take the vitamins as directed, and nausea medication as needed and directed. Avoid consumption of Motrin, ibuprofen, Naprosyn, Aleve, alcohol, smoke products and aspirin. Please avoid heavy lifting, strenuous physical activity, and sexual activity, until cleared to do so by an [facility] doctor. Please return to the emergency room right away with new pain, worsened pain, migration of pain, rectal vomiting, change in mental status, confusion, inability to tolerate liquid feeds, new, worsened or different symptoms not present on the initial emergency room evaluation. Prescriptions: Doxylamine Succinate/Vit B6 [Kacie Cannon 10-10 mg Tablet] 1 each PO QHS PRN #30 tablet. PRN Reason: Nausea Vit-Fe Fumar-FA [ Vitamin] 1 tab PO QDAY #30 tablet Referrals: LEIGHTON HERRERA MD [Staff Physician] - 3-5 Days [facility] [Provider Group] - 3-5 Days [facility] [Provider Group] - 3-5 Days [facility] [Provider Group] - 3-5 Days
[2020-05-23 09:25] VITALS: BP 115/71
== END 2020-05-23 09:00 | disposition home or self-care (01) ==
LOC: ED 01:42
DX: O20.0 Threatened abortion (principal); Z79.899 Other long term (current) drug therapy; Z98.890 Other specified postprocedural states; Z3A.01 Less than 8 weeks gestation of pregnancy
CPT/HCPCS: 36415; 76801; 76817; 81001; 84702; 85025; 86900; 86901

== ENCOUNTER 2021-03-25 23:22 | Emergency (ER) | payer SELFPAY | END 2021-03-25 23:25 | disposition left against medical advice (07) | LOC: ED 23:22 | DX: Z00.8 Encounter for other general examination (principal); Z53.21 Procedure and treatment not carried out due to patient leaving prior to being seen by health care provider ==

== ENCOUNTER 2022-04-22 18:10 | Emergency (ER) | payer MEDICAID ==
--- NOTE | 2022-04-22 23:49 | Cat Scan Report ---
CT HEAD WITHOUT CONTRAST INDICATION / CLINICAL INFORMATION: Seizure. TECHNIQUE: All CT scans at this location are performed using CT dose reduction for ALARA by means of automated exposure control. COMPARISON: None available. FINDINGS: CEREBRAL/CEREBELLAR PARENCHYMA: The cerebral and cerebellar hemispheres are normal for age. No CT nathen dence for an acute or subacute territorial infarct. HEMORRHAGE: No acute intra-axial hemorrhage or extra-axial fluid collection. MASS: No mass or mass effect. VENTRICULAR SYSTEM: Normal in size and morphology for the patient's age. ORBITS: No acute process. SOFT TISSUES/SKULL: Right frontal scalp contusion without underlying skull fracture. PARANASAL SINUSES/MASTOID AIR CELLS: Partially visualized left maxillary sinus mucosal thickening and layering fluid. Moderate bilateral ethmoid air cell mucosal thickening. IMPRESSION: 1. No acute intracranial process. 2. Right frontal scalp contusion without underlying skull fracture. Signer Name: Marc Mitchell MD Signed: 04/22/2022 11:45 PM Workstation Name: [email or web address]
[2022-04-23 00:32] LABS: Basophils % (Auto) 0.6 % (0.0-1.8); Eosinophils # (Auto) 0.2 K/mm3 (0.0-0.4); Eosinophils % (Auto) 2.3 % (0.0-4.3); Hematocrit 42.4 % (30.3-42.9); Hemoglobin 13.6 gm/dl (10.1-14.3); Lymphocytes # (Auto) 1.2 K/mm3 (1.2-5.4); Lymphocytes % (Auto) 16.7 % (13.4-35.0); Mean Corpuscular HGB Conc 32 % (30-34); Mean Corpuscular Volume 87 fl (79-97); Monocytes # (Auto) 0.6 K/mm3 (0.0-0.8); Platelet Count 249 K/mm3 (140-440); Red Cell Distribution Width 14.2 % (13.2-15.2)
[2022-04-23 00:34] LABS: Alanine Aminotransferase 12 units/L (7-56); Albumin 4.3 g/dL (3.9-5); Blood Urea Nitrogen 9 mg/dL (7-17); Calcium 9.3 mg/dL (8.4-10.2); Hemolysis Index 7
[2022-04-23 00:48] LABS: BUN/Creatinine Ratio 15
--- NOTE | 2022-04-23 01:03 | Emergency Department Report ---
ED Seizure HPI - General Chief Complaint: Seizure Stated Complaint: SEIZURE/FALL Time Seen by Provider: 04/22/22 23:09 Source: patient, EMS Mode of arrival: Stretcher Limitations: No Limitations - History of Present Illness Initial Comments: Patient is a 37-year-old female presenting the ED after having a witnessed seizure. She has no past history of seizures. States she hit her head during the fall. - Related Data Previous Rx's Medication Instructions Recorded Last Taken Type Famotidine [Pepcid] 20 mg PO BID #20 tablet 06/15/19 Unknown Rx Doxylamine Succinate/Vit B6 1 each PO QHS PRN #30 tablet. 05/23/20 Unknown Rx [Kacie Cannon 10-10 mg Tablet] Vit-Fe Fumar-FA [ 1 tab PO QDAY #30 tablet 05/23/20 Unknown Rx Vitamin] Allergies Allergy/AdvReac Type Severity Reaction Status Date / Time No Known Allergies Allergy Verified 06/06/17 23:47 ED Review of Systems ROS: Stated complaint: SEIZURE/FALL Other details as noted in HPI Constitutional: denies: chills, fever Respiratory: denies: cough, shortness of breath, wheezing Cardiovascular: denies: chest pain, palpitations Gastrointestinal: denies: abdominal pain, nausea, diarrhea Genitourinary: denies: urgency, dysuria, discharge Musculoskeletal: denies: back pain, joint swelling, arthralgia Skin: denies: rash, lesions Neurological: denies: headache, weakness, paresthesias Psychiatric: denies: anxiety, depression ED Past Medical Hx - Past Medical History Previous Medical History?: No - Surgical History Additional Surgical History: fibroid removal 2014 - Social History Smoking Status: Never Smoker - Medications Home Medications: Home Medications Medication Instructions Recorded Confirmed Last Taken Type Famotidine [Pepcid] 20 mg PO BID #20 tablet 06/15/19 Unknown Rx Doxylamine Succinate/Vit B6 1 each PO QHS PRN #30 tablet. 05/23/20 Unknown Rx [Kacie Cannon 10-10 mg Tablet] Vit-Fe Fumar-FA [ 1 tab PO QDAY #30 tablet 05/23/20 Unknown Rx Vitamin] ED Physical Exam - General Limitations: No Limitations General appearance: alert, in no apparent distress - Head Head exam: Present: normocephalic, other (Swelling to right forehead) - Respiratory Respiratory exam: Present: normal lung sounds bilaterally. Absent: respiratory distress - Cardiovascular Cardiovascular Exam: Present: regular rate, normal rhythm, normal heart sounds - GI/Abdominal GI/Abdominal exam: Present: soft. Absent: distended, tenderness - Rectal Rectal exam: Present: deferred - Neurological Exam Neurological exam: Present: alert, oriented X3 - Psychiatric Psychiatric exam: Present: normal affect, normal mood - Skin Skin exam: Present: warm, dry, intact, normal color ED Course Vital Signs 04/22/22 04/22/22 18:49 23:20 Temperature 97.8 F 97.9 F Pulse Rate 83 64 Respiratory 18 16 Rate Blood Pressure 132/72 115/71 [Left] O2 Sat by Pulse 100 99 Oximetry ED Medical Decision Making - Lab Data Result diagrams: 04/22/22 23:22 04/22/22 23:22 - Medical Decision Making CT head negative for acute intracranial abnormality. Right frontal contusion noted. CBC and CMP are unremarkable. Patient had no seizure activity while in the emergency department. She is stable for discharge home with return precautions. Critical care attestation.: If time is entered above; I have spent that time in minutes in the direct care of this critically ill patient, excluding procedure time. ED Disposition Clinical Impression: Seizure Disposition: 01 HOME / SELF CARE / HOMELESS Is pt being admited?: No Condition: Stable Instructions: Seizure, Adult, [id number] Additional Instructions: Please follow-up with your regular doctor within 1 to 2 weeks. You may return if symptoms worsen. Time of Disposition: 01:03
[2022-04-23 03:00] VITALS: BP 122/79
== END 2022-04-23 02:20 | disposition home or self-care (01) ==
LOC: ED 18:10
DX: R56.9 Unspecified convulsions (principal)
CPT/HCPCS: 36415; 70450; 80053; 85025; 99284